=== PATIENT | female | born 1960 | race Two or more races ===

== ENCOUNTER 2016-03-13 17:43 | Emergency (ER) | payer OTHER ==
[2016-03-13 18:02] VITALS: RESP 18; TEMP 98.4
--- NOTE | 2016-03-13 18:07 | UCPHY ---
H & P Time Seen by Provider: 03/13/16 17:59 Patient Type: Established HPI/ROS: CHIEF COMPLAINT: Sore throat x5 days HISTORY OF PRESENT ILLNESS: 55-year-old female history control diabetes complaining of 5 days of sinus congestion, drainage, sore throat. No cough. No dyspnea. No chest pain. No back pain. No abdominal pain. No urinary complaints. No rash. No nausea or vomiting. No diarrhea. No abdominal pain. No headache. No nuchal rigidity. PRIMARY CARE PROVIDER: [facility] REVIEW OF SYSTEMS: A ten point review of systems was performed and is negative with the exception of the items mentioned in the HPI PAST MEDICAL & SURGICAL HISTORY: Diabetes SOCIAL HISTORY:nonsmoker PHYSICAL EXAM (Prior to examination, patient consented to physical exam, hands were washed and my usual and customary physical exam procedures followed) 1) GENERAL: Well-developed, well-nourished, alert and oriented. Appears Nontoxic. 2) HEAD: Normocephalic, atraumatic 3) HEENT: Pupils equal, round, reactive to light bilaterally. Sclera anicteric. Nasopharynx, oropharynx, clear, no lesions. No tonsillar enlargement or exudate. No trismus no drooling. Ears bilaterally with normal tympanic membranes. 4) NECK: Full range of motion, no meningeal signs. Positive tender submandibular adenopathy bilaterally. 5) LUNGS: Clear auscultation bilaterally, no wheezes, no rhonchi, no retractions. 6) HEART: Regular rate and rhythm, no murmur, no heave, no gallop. 7) ABDOMEN: No guarding, no rebound, no focal tenderness, negative McBurney's, negative Drake's, negative Rovsing's, negative peritoneal sign, 8) MUSCULOSKELETAL: Moving all extremities, no focal areas of tenderness, no obvious trauma. No peripheral edema or discoloration. 9) BACK: No CVA tenderness, no midline vertebral tenderness, no fluctuance, no step-off, no obvious trauma, no visual or palpable abnormality. 10) SKIN: No rash, no petechiae. 11) Psychiatric: Patient is oriented X 3, there is no agitation. DIFFERENTIAL DIAGNOSIS: in no particular include but limited to strep pharyngitis, pneumonia, sepsis, meningitis Smoking Status: Never smoked Constitutional: Initial Vital Signs Temperature (C) 36.9 C 03/13/16 17:51 Heart Rate 93 03/13/16 17:51 Respiratory Rate 18 03/13/16 17:51 Blood Pressure 174/75 H 03/13/16 17:51 O2 Sat (%) 91 L 03/13/16 17:51 O2 Delivery Mode Room Air Allergies/Adverse Reactions: No Known Allergies Allergy (Verified 03/13/16 17:50) Home Medications: Medication Instructions Recorded INSULIN REGULAR, HUMAN 12/15/14 AZITHROMYCIN [Z-PACK] 500 mg PO DAILY #1 packet 03/13/16 Ipratropium 0.06% Nasal [Atrovent 2 sprays EACHNARE QID #1 mdi 03/13/16 0.06% Nasal] Medical Decision Making ED Course/Re-evaluation: This patient is not septic. She appears well. Lungs are clear bilaterally. I have recommended empiric treatment with antibiotics with azithromycin. She denies cardiac disorder history. I do not think chest x-ray indicated. Recommend close follow-up with PCP. Usual and customary URI precautions provided. Departure - Departure Disposition: Home, Routine, Self-Care Clinical Impression: Upper respiratory infection Qualifiers: URI type: unspecified URI Qualifier Code: (J06.9) Acute upper respiratory infection, unspecified Condition: Good Instructions: Upper Respiratory Infection (ED) Referrals: [facility] [Outside] - 2-3 days, call for appt. Prescriptions: Ipratropium 0.06% Nasal [Atrovent 0.06% Nasal] 2 sprays EACHNARE QID #1 mdi AZITHROMYCIN [Z-PACK] 500 mg PO DAILY #1 packet - PQRS PQRS Measurement: n/a
[2016-03-13 18:17] VITALS: BP 164/89; PULSE 89; O2SAT 94
== END 2016-03-13 18:17 | disposition home or self-care (01) ==
LOC: CED 17:43
DX: J06.9 Acute upper respiratory infection, unspecified (principal); E11.9 Type 2 diabetes mellitus without complications
CPT/HCPCS: G0463-PO

== ENCOUNTER → 2016-08-10 | Outpatient (CLI) | payer OTHER | LOC: BRMIMAGING 16:36 | PROVIDERS: ATTEND Internal Medicine | DX: S60.211A Contusion of right wrist, initial encounter (principal); M11.232 Other chondrocalcinosis, left wrist | CPT/HCPCS: 73110-PO ==

== ENCOUNTER 2016-09-25 12:15 | Emergency (ER) | payer OTHER ==
--- NOTE | 2016-09-25 12:46 | EDPHY ---
H & P Time Seen by Provider: 09/25/16 12:23 HPI/ROS: Chief Complaint: Left arm and left leg pain HPI: 56-year-old woman with a history of diabetes presenting gradual onset of left arm left leg pain the last 2 days. Described as an aching pain in her forearm and her lower leg. Has not had any swelling. No periods of immobility. Does not have any falls or injuries. No chest pain or shortness of breath. No fevers or chills. Does have a history of gout but does not feel that this is likely acute gouty flare. No nausea or vomiting. She is Chinese-speaking only. Interpretations done by telephone translation service. ROS: 10 point Review of Systems is negative except as noted in the HPI. PMH: Diabetes, gout Social History: No smoking, no alcohol, no recreational drug use Family History: non-contributory Physical Exam: Gen: Awake, Alert, No Distress HEENT: Nose: no rhinorrhea Eyes: PERRLA, EOMI Mouth: Moist mucosa Neck: Supple, no JVD Chest: nontender, lungs clear to auscultation Heart: S1, S2 normal, no murmur Abd: Soft, non-tender, no guarding Back: no CVA tenderness, no midline tenderness Ext: no edema, mild tenderness of her forearm soft tissue. No acute bony tenderness. No pain with flexion extension pronation or supination of her elbow or wrist. There is no erythema or tenderness. Left leg. She has got mild tenderness in the calf. Is not proximal. There is no swelling. Calves are symmetrical. There is no erythema. Skin: no rash Neuro: CN II-XII intact, Sensation grossly intact, Strength 5/5 in bilateral upper and lower extremities - Personal History Tetanus Vaccine Date: < 10 years - Medical/Surgical History Hx Asthma: No Hx Chronic Respiratory Disease: No Hx Diabetes: Yes Hx Cardiac Disease: No Hx Renal Disease: No Hx Cirrhosis: No Hx Alcoholism: No Hx HIV/AIDS: No Hx Splenectomy or Spleen Trauma: No Other PMH: TONGUE CANCER, OPERATED. diabetes - Social History Smoking Status: Never smoked Allergies/Adverse Reactions: No Known Allergies Allergy (Verified 09/25/16 12:46) Home Medications: Medication Instructions Recorded Cholesterol Med 09/25/16 Oral Tab For Diabetes 09/25/16 Medical Decision Making ED Course/Re-evaluation: 56-year-old woman presenting with left arm and left leg pain. She has no edema suggestive of DVT. There is no erythema fever suggestive of infection. She has no acute bony abnormality or bony tenderness. She has not had any trauma. There is no evidence of fracture or dislocation at this time. Will give oral analgesia instructions to follow up with primary care physician, return for worsening. Departure - Departure Disposition: Home, Routine, Self-Care Clinical Impression: Myalgia Condition: Good Instructions: Musculoskeletal Pain (ED) Additional Instructions: You may alternate ibuprofen with acetaminophen every 4 hours as needed for aches and pains. Follow up with physician at the [facility] in 1-2 days. Return to the emergency depart for increasing pain, fevers, chills, numbness, weakness, or any other concerns. Referrals: [facility],. [Clinic] - As per Instructions Print Language: Chinese
[2016-09-25] MEDS ORDERED: ACETAMINOPHEN 325 MG TAB PO ONE (12:49)
[2016-09-25 12:53] VITALS: BP 132/65; PULSE 80; RESP 16; TEMP 98.2; O2SAT 93
== END 2016-09-25 13:18 | disposition home or self-care (01) ==
LOC: CED 12:15
DX: M79.1 Myalgia (principal); E11.9 Type 2 diabetes mellitus without complications; Z85.810 Personal history of malignant neoplasm of tongue